=== PATIENT | male | born 1990 | race Caucasian/White ===

== ENCOUNTER 2019-06-09 14:44 | Inpatient (IN) | payer OTHER ==
[~2019-06-09] VITALS: Ht 182.9 cm; Wt 60.6 kg
[2019-06-09 16:18] LABS: HEMATOCRIT 45.2 % (42.0-52.0); HEMOGLOBIN 14.5 g/dl (13.5-17.5); MEAN CORPUSCULAR HEMOGLOBIN 28.3 pg (27.0-33.0); MEAN CORPUSCULAR HGB CONC 32.1 g/dl (32.0-36.5); MEAN CORPUSCULAR VOLUME 88.3 fl (80.0-96.0); PLATELET COUNT, AUTOMATED 207 10^3/uL (150-450); RED BLOOD COUNT 5.12 10^6/uL (4.30-6.10); WHITE BLOOD COUNT 8.7 10^3/uL (4.0-10.0)
[2019-06-09 16:40] LABS: AMPHETAMINES LEVEL URINE NEGATIVE (NEGATIVE); BARBITURATES URINE NEGATIVE (NEGATIVE); BENZODIAZEPINES URINE NEGATIVE (NEGATIVE); CANNABINOIDS URINE NEGATIVE (NEGATIVE); COCAINE METABOLITE URINE NEGATIVE (NEGATIVE); METHADONE URINE NEGATIVE (NEGATIVE); OPIATES URINE NEGATIVE (NEGATIVE); PHENCYCLIDINE URINE NEGATIVE (NEGATIVE)
[2019-06-09 16:56] LABS: ACETAMINOPHEN LEVEL < 2.0 UG/ML (10.0-30.0); ALBUMIN 4.5 GM/DL (3.2-5.2); ALT/SGPT 17 U/L (12-78); BILIRUBIN,DIRECT 0.2 MG/DL (0.0-0.2); BILIRUBIN,TOTAL 0.7 MG/DL (0.2-1.0); BLOOD UREA NITROGEN 8 MG/DL (7-18); CALCIUM LEVEL 9.2 MG/DL (8.5-10.1); CARBON DIOXIDE LEVEL 28 MEQ/L (21-32); CHLORIDE LEVEL 105 MEQ/L (98-107); CREATININE FOR GFR 1.07 MG/DL (0.70-1.30); ETHYL ALCOHOL (ETHANOL) < 0.003 % (0.000-0.010); GLOMERULAR FILTRATION RATE > 60.0 (>60); GLUCOSE, FASTING 95 MG/DL (70-100); POTASSIUM SERUM 4.1 MEQ/L (3.5-5.1); SALICYLATE LEVEL 2.6 MG/DL (5.0-30.0); SODIUM LEVEL 139 MEQ/L (136-145); THYROID STIMULATING HORMONE 0.691 uIU/ML (0.358-3.740); TOTAL PROTEIN 7.9 GM/DL (6.4-8.2)
[2019-06-09] MEDS ORDERED: MAALOX 30 ML SUSP *UDC PO PRN (19:15)
[2019-06-09] MEDS ORDERED: OLANZapine ORAL DISINTEGRATING TAB 5MG PO PRN (19:15)
[2019-06-09] MEDS ORDERED: MOM 30ML SUSPENSION UDC PO PRN (19:15)
[2019-06-09] MEDS ORDERED: ACETAMINOPHEN TAB 650MG DOSE (2X325MG) PO PRN (19:15)
[2019-06-09 21:34] VITALS: BP 126/76
[2019-06-10 07:25] VITALS: BP 106/55
[2019-06-10] MEDS: NICOTINE 21MG/24HR 1 EA TRANSDERMAL TD SCH ×2 (09:00→15:11)
[2019-06-10 12:00] VITALS: BP 128/76
--- NOTE | 2019-06-10 12:33 | MHHPEPDOC ---
General Date Of Admission: Jun 09, 2019 Legal Status: 9.39 Chief Complaint "I'm having thoughts of harming myself". History of Present Illness HISTORY OF THE PRESENT ILLNESS: Patient is a 28 -year-old , AD, male, with no previous psych history who was sent by [facility] after seen as a walk-in for thoughts of SI to the point he turned over his historical knife collection to per ED. Pt endorsed in the ED psychosocial stressors of his currently have epilepsy and trying to transfer to [place] where he and his are from as his currently has to tavel to [place] for all her medical appt's which is stressful, his is also in a custody santos with her ex- regarding th e 's daughter. Pt stated in the ED that he was disappointed with in himself for having thoughts of SI. Psychiatric Review of Systems Depression (2 or more weeks): depressed mood, insomnia/hypersomnia (insomnia), difficulty concentrating, suicidal thoughts Evita (4 or more days of): denies Psychosis: denies PTSD: denies Anxiety: situational anxiety, stressor related anxiety Anxiety/ 6 months or more of: restlessness, keyed up, difficulty concentrating Past Psychiatric History Previous Psychiatric Diagnosis: denies Previous Psychiatric Admissions: denies Suicide Attempts: denies Psychiatric Follow-up: [facility], has been in Anger management in the past at [facility] Psychiatric medications: denies Past Medical History Medical Problems denies Head Injury: No Seizures: No Hospitalizations: No Surgeries: No Family Medical/Psychiatric HX Medical Problems noncontributory Psychiatric Disorders: No Addiction: Yes (father-alcoholism) Suicide Attemps/Completions: No Addiction History denies Social History Childhood: Raised mostly in [place], father was in the , parents when he was 14, 1 older sister and 1 older brother, good childhood Abuse/Trauma: denies Current Living Situation: currently lives with on [place] [address] Education: high school grad Employment: [employer] Social Support: Legal: denies Marital: , 2 step children 12 and 10 Mental Status Examination General Appearance: well groomed, appears stated age, personal clothing Build: average Demeanor: average Eye Contact: average Activity: average Behavior: cooperative Speech: clear, spontaneous, reg/rate,rhythm,volume Mood: euthymic, anxious Mood better Affect: full, appropriate, anxious Thought Content (Delusions): none reported, denies SI, HI, AVH Thought Content (Other): none reported, appropriate Thought Content (Aggressive): none reported Perception (Hallucinations): none reported Perception (Other): none reported Cognition (Impairment of): none reported Cognition(Intelligence Est.): average Oriented: Awake, Alert, Oriented times three Insight: fair Judgment: Fair Psychosis: Denies Diagnoses Adjustment d/o with anxiety and depression A-FIB/CHADSVASC A-FIB History Current/History of A-Fib/PAF?: No Assessment Pt seen and states he's been dealing with a lot of stress working in [employer] in the [employer] that has been insomnia and had feelings of SI yesterday which caused him to come to the ED for help. States he's interested in going to [facility] for therapy in the future to help himself. Denies SI today and states he feels "hopeful" today as he has sought help as states his father became an alcoholic b/c he didn't seek help for anxiety, depression. Denies he feels he needs to start an antidepressant and would like to just continue with therapy outpatient at [facility] as found talking to myself and [facility] staff yesterday very beneficial and states his mood and anxiety are better b/c of that ability to talk about his psychosocial stressors. Denies SI/HI, hallucinations, delusions. Feels safe here. Initial Treatment Plan 1. Patient was admitted on a 9.39 status. 2. Complete history was obtained. 3. With patients permission, family will be contacted and database will be expanded. 4. Patients medication regimen will be reviewed and changed accordingly. 5. Patient will be provided with protected environment. 6. Patient will be treated with individual, group, and milieu therapies. 7. Patient will receive supportive psych-education. 8. Discharge planning will commence immediately. 9. Outpatient follow-up treatment will be strongly recommended. 10. The initial treatment plan will focus initially on: * Depression. * Risk for suicide. 11. monitor for safety ESTIMATED LENGTH OF STAY: 3-5 DAYS. TIME SPENT COUNSELING AND COORDINATING INITIAL CARE: 60 minutes. Vital Signs Vital Signs Date Time Temp Pulse Resp B/P (MAP) Pulse Ox O2 Delivery O2 Flow Rate FiO2 06/10/19 07:25 98.3 63 14 106/55 (72) 06/09/19 21:34 97 Room Air Laboratory Data 24H Labs Laboratory Tests 2 06/09/19 16:01: Nucleated Red Blood Cells % (auto) 0.0, Anion Gap 6L, Glomerular Filtration Rate > 60.0, Calcium Level 9.2, Total Bilirubin 0.7, Direct Bilirubin 0.2, Aspartate Amino Transf (AST/SGOT) 8, Alanine Aminotransferase (ALT/SGPT) 17, Alkaline Phosphatase 77, Total Protein 7.9, Albumin 4.5, Albumin/Globulin Ratio 1.32, Thyroid Stimulating Hormone (TSH) 0.691, Salicylates Level 2.6L, Urine Opiates Screen NEGATIVE, Urine Methadone Screen NEGATIVE, Acetaminophen Level < 2.0L, Urine Barbiturates Screen NEGATIVE, Urine Phencyclidine Screen NEGATIVE, Urine Amphetamines Screen NEGATIVE, Urine Benzodiazepines Screen NEGATIVE, Urine Cocaine Metabolite Screen NEGATIVE, Urine Cannabinoids Screen NEGATIVE, Ethyl Alcohol Level < 0.003 CBC/BMP Laboratory Tests 06/09/19 16:01 Medications No Active Prescriptions or Reported Meds Allergies Coded Allergies: Blueberry (Verified Allergy, Unknown, HIVES, 06/09/19) strawberry (Verified Allergy, Unknown, HIVES, 06/09/19) MARSHA RUBIO DO Jun 10, 2019 12:10 pm
[2019-06-10 16:29] VITALS: BP 139/78
[2019-06-10] MEDS: traZODone 50 MG TAB PO PRN (21:53)
[2019-06-10 23:13] VITALS: BP 138/60
[2019-06-11 06:21] VITALS: BP 123/61
[2019-06-11] MEDS: NICOTINE 21MG/24HR 1 EA TRANSDERMAL TD SCH (08:29)
--- NOTE | 2019-06-11 08:49 | MHIPNPDOC ---
[facility] Progress Note Progress Note DATE OF SERVICE: 06/11/19 HISTORY:Patient is a 28 -year-old , AD, male, with no previous psych history who was sent by [facility] after seen as a walk-in for thoughts of SI to the point he turned over his historical knife collection to per ED. Pt endorsed in the ED psychosocial stressors of his currently have epilepsy and trying to transfer to [place] where he and his are from as his currently has to tavel to [place] for all her medical appt's which is stressful, his is also in a custody santos with her ex- regarding the 's daughter. Pt stated in the ED that he was disappointed with in himself for having thoughts of SI. Pt seen and states he's been dealing with a lot of stress working in [employer] in the [employer] that has been insomnia and had feelings of SI yesterday which caused him to come to the ED for help. States he's interested in going to [facility] for therapy in the future to help himself. Denies SI today and states he feels "hopeful" today as he has sought help as states his father became an alcoholic b/c he didn't seek help for anxiety, depression. Denies he feels he needs to start an antidepressant and would like to just continue with therapy outpatient at [facility] as found talking to myself and [facility] staff yesterday very beneficial and states his mood and anxiety are better b/c of that ability to talk about his psychosocial stressors. Denies SI/HI, hallucinations, delusions. Feels safe here. VITAL SIGNS: See below. NEW TEST RESULTS: See below. CURRENT MEDICATIONS: See below. MENTAL STATUS EXAMINATION: General Appearance: well groomed, appears stated age, personal clothing Build: average Demeanor: average Eye Contact: average Activity: average Behavior: cooperative Speech: clear, spontaneous, reg/rate,rhythm,volume Mood: euthymic, less anxious Mood "alright" Affect: full, appropriate, less anxious Thought Content (Delusions): none reported, denies SI, HI, AVH Thought Content (Other): none reported, appropriate Thought Content (Aggressive): none reported Perception (Hallucinations): none reported Perception (Other): none reported Cognition (Impairment of): none reported Cognition(Intelligence Est.): average Oriented: Awake, Alert, Oriented times three Insight: fair Judgment: Fair Psychosis: Denies DIAGNOSES: Adjustment d/o with anxiety and depression ASSESSMENT:Pt seen and states that his mood is "alright". States he slept well last night with trazodone. He is attending groups and finding them helpful as he enjoyed being able to work with his hands and plans to continue to do that as a coping mechanism when he leaves. States his turned over most of his k nife collection that he started with his grandfather yesterday and plans to sign for the rest to be turned into his Benjamin today. He denies SI/HI, hallucinations, delusions. Pt feels safe here. MANAGEMENT PLAN: d/c tomorrow. medications: trazodone 50mg qhs prn insomnia TIME SPENT: 30 minutes. Vital Signs Vital Signs Date Time Temp Pulse Resp B/P (MAP) Pulse Ox O2 Delivery O2 Flow Rate FiO2 06/11/19 06:21 98.0 92 16 123/61 (81) 06/09/19 21:34 97 Room Air Current Medications Current Medications Medications (Trade) Dose Ordered Sig/Jennifer Route PRN Reason Start Time Stop Time Status Last Admin Dose Admin Acetaminophen (Tylenol Tab) 650 mg Q6HP PRN PO HEADACHE or DISCOMFORT 06/09/19 19:15 Al Hydrox/Mg Hydrox/Simethicone (Mylanta) 30 ml Q4HP PRN PO HEARTBURN/INDIGESTION 06/09/19 19:15 Home Med (Med Rec Complete!) ASDIRECTED XX 06/09/19 19:30 06/09/19 19:26 DC Magnesium Hydroxide (Milk Of Magnesia) 30 ml DAILYPRN PRN PO CONSTIPATION 06/09/19 19:15 Nicotine (Nicoderm Cq 21mg) 1 patch DAILY TD 06/10/19 09:00 06/11/19 08:29 Olanzapine (ZyPREXA ZYDIS) 5 mg Q4HP PRN PO AGITATION 06/09/19 19:15 Trazodone HCl (Desyrel) 50 mg QHSP PRN PO INSOMNIA 06/09/19 19:15 06/10/19 21:53 Allergies Coded Allergies: Blueberry (Verified Allergy, Unknown, HIVES, 06/09/19) strawberry (Verified Allergy, Unknown, HIVES, 06/09/19) MARSHA RUBIO DO Jun 11, 2019 8:49 am
[2019-06-11 18:39] VITALS: BP 134/78
[2019-06-11] MEDS: traZODone 50 MG TAB PO PRN (21:53)
--- NOTE | 2019-06-12 05:24 | HPEPDOC ---
[facility] Medical History & Physical Date of Admission Jun 12, 2019 Date of Service: Jun 12, 2019 Attending Physician: MARSHA RUBIO DO History and Physical TIME OF SERVICE: 5:40 AM REASON FOR CONSULT: Medical evaluation HISTORY OF PRESENT ILLNESS: This is a 28-year-old male without medical history who was admitted to [facility] for management of depression with suicidal ideation. Really he denies having any acute complaints of left part of the night. He anticipates being discharged later on today. REVIEW OF SYSTEMS: 12 point review of systems negative except as listed in HPI PAST MEDICAL/ SURGICAL HISTORY: None SOCIAL HISTORY: He is in the He smokes ALLERGIES: Please see below. HOME MEDICATIONS: Please see below. PHYSICAL EXAMINATION: VITAL SIGNS: Please see below. GEN: well-nourished / well developed/ NAD HEENT: NCAT MSK/EXTREMITIES: Gait normal NEURO: CN 2-12 are grossly intact / speech is not dysarthric PSYCH: alert and oriented to person place and time/ able to understand and follow all commands LABORATORY DATA: 06/09/19 WBC 8.7, hemoglobin 14. 5, platelets 207, sodium 139, potassium 4.1, chloride 105, carbon dioxide 28, BUN 8, creatinine 1.07, GFR greater than 60, glucose 95, TSH 0.691 Drug screen was unremarkable ASSESSMENT: Mr. Becerril is a 28 yr old M admitted for management of depression with suicidal ideation; consulted for medical evaluation. PLAN: 1. Depression with suicidal ideation-Plan: Per primary team 2. [id number]-Oruf: Follow up with PCP 3. Tobacco abuse-Plan: Smoking cessation education. He has a nicotine patch Thank you for consulting us. We will sign off unless any acute medical issues arise. Vital Signs Vital Signs Date Time Temp Pulse Resp B/P (MAP) Pulse Ox O2 Delivery O2 Flow Rate FiO2 06/11/19 18:39 99.1 95 18 134/78 (96) 06/09/19 21:34 97 Room Air Home Medications No Active Prescriptions or Reported Meds Allergies Coded Allergies: Blueberry (Verified Allergy, Unknown, HIVES, 06/09/19) strawberry (Verified Allergy, Unknown, HIVES, 06/09/19) A-FIB/CHADSVASC A-FIB History Current/History of A-Fib/PAF?: No Current PO Anticoag Therapy: No SARAN CLEMONS MD Jun 12, 2019 05:24
[2019-06-12 06:06] VITALS: BP 114/68
[2019-06-12] MEDS: NICOTINE 21MG/24HR 1 EA TRANSDERMAL TD SCH (08:34)
--- NOTE | 2019-06-12 08:50 | MHDSPDOC ---
[facility] Discharge Summary Discharge Summary DATE OF ADMISSION: Jun 09, 2019 at 7:09 pm DATE OF DISCHARGE: Jun 15, 2019 DISCHARGE DIAGNOSES: Adjustment d/o with anxiety and depression REASON FOR ADMISSION: Patient is a 28 -year-old , AD, male, with no previous psych history who was sent by [facility] after seen as a walk-in for thoughts of SI to the point he turned over his historical knife collection to [facility] ED. Pt endorsed in the ED psychosocial stressors of his currently have epilepsy and trying to transfer to [place] where he and his are from as his currently has to tavel to [place] for all her medical appt's which is stressful, his is also in a custody santos with her ex- regarding the 's daughter. Pt stated in the ED that he was disappointed with in himself for having thoughts of SI. Pt seen and states he's been dealing with a lot of stress working in [employer] in the [place] that has been insomnia and had feelings of SI yesterday which caused him to come to the ED for help. States he's interested in going to [facility] for therapy in the future to help himself. Denies SI today and states he feels "hopeful" today as he has sought help as states his father became an alcoholic b/c he didn't seek help for anxiety, depression. Denies he feels he needs to start an antidepressant and would like to just continue with therapy outpatient at [facility] as found talking to myself and [facility] staff yesterday very beneficial and states his mood and anxiety are better b/c of that ability to talk about his psychosocial stressors. Denies SI/HI, hallucinations, delusions. Feels safe here. CONSULTANTS INVOLVED: none TREATMENT AND PROGRESS ON THE UNIT : Pt was admitted to [facility], seen for psychiatric assessment and not started on an antidepressant medication as he declined he needed on and wanted to try outpatient therapy as treatment first for his mood and anxiety as he found talking very beneficial. He was provided trazodone 50mg qhs prn insomnia that he found beneficial for insomnia, tolerated well, and wanted a prescription for upon d/c. He attended groups daily during his stay. His symptoms improved with treatment. On day of discharge he denied depression, anxiety, insomnia, SI/HI, hallucinations, delusions. He was discharged home after Benjamin meeting with follow-up at [facility]. He felt safe for discharge. DISCHARGE ASSESSMENT: Pt seen and states that his mood is "good" and that he's looking forward to going home with his Benjamin today. States he slept well last night with trazodone and is tolerating it well. He is attending groups and finding them helpful as he enjoyed being able to work with his hands and plans to continue to do that as a coping mechanism when he leaves. States his historical knife collection has been turned over to his Benjamin by his . He denies depression, anxiety, insomnia, SI/HI, hallucinations, delusions. Pt feels safe to d/c home with his Benjamin today. MENTAL STATUS EXAMINATION ON DISCHARGE: General Appearance: well groomed, appears stated age, personal clothing Build: average Demeanor: average Eye Contact: average Activity: average Behavior: cooperative Speech: clear, spontaneous, reg/rate,rhythm,volume Mood: euthymic, full range Mood "good" Affect: full, appropriate, congruent Thought Content (Delusions): none reported, denies SI, HI, AVH Thought Content (Other): none reported, appropriate Thought Content (Aggressive): none reported Perception (Hallucinations): none reported Perception (Other): none reported Cognition (Impairment of): none reported Cognition(Intelligence Est.): average Oriented: Awake, Alert, Oriented times three Insight: good Judgment: good Psychosis: Denies MEDICATIONS ON DISCHARGE: trazodone 50mg qhs prn insomnia PLAN/FOLLOWUP ARRANGEMENTS: D/c home with Benjamin with follow-up at [facility]. The amount of time spent in the coordination of care for this patient was approximately 30 minutes. Vital Signs/I&Os Vital Signs Date Time Temp Pulse Resp B/P (MAP) Pulse Ox O2 Delivery O2 Flow Rate FiO2 06/12/19 06:06 99.1 77 16 114/68 (83) 06/09/19 21:34 97 Room Air Medications No Active Prescriptions or Reported Meds Allergies Coded Allergies: Blueberry (Verified Allergy, Unknown, HIVES, 06/09/19) strawberry (Verified Allergy, Unknown, HIVES, 06/09/19) MARSHA RUBIO DO Jun 12, 2019 8:50 am
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
[2019-06-12 16:26] VITALS: BP 136/80
[2019-06-12] MEDS: traZODone 50 MG TAB PO PRN (22:17)
[2019-06-13 05:58] VITALS: BP 115/68
[2019-06-13] MEDS: NICOTINE 21MG/24HR 1 EA TRANSDERMAL TD SCH (08:26)
[2019-06-13 16:17] VITALS: BP 124/88
[2019-06-13] MEDS: traZODone 50 MG TAB PO PRN (22:20)
[2019-06-14 06:31] VITALS: BP 131/67
[2019-06-14] MEDS: NICOTINE 21MG/24HR 1 EA TRANSDERMAL TD SCH (08:34)
[2019-06-14 16:06] VITALS: BP 114/60
[2019-06-14] MEDS: traZODone 50 MG TAB PO PRN (21:53)
[2019-06-15 06:48] VITALS: BP 129/80
[2019-06-15] MEDS: NICOTINE 21MG/24HR 1 EA TRANSDERMAL TD SCH (08:18)
[2019-06-15] MEDS ORDERED: TRAZ-252 PO (08:26)
[2019-06-15] MEDS ORDERED: NICO21PAT TD (09:52)
== END 2019-06-15 10:35 | disposition home or self-care (01) | DRG 882 ==
LOC: M ED 14:44 → M ED INP 19:09 → M PSY 21:10
PROVIDERS: ADMIT Psychiatry & Neurology Psychiatry; ATTEND Psychiatry & Neurology Psychiatry
DX: F43.23 Adjustment disorder with mixed anxiety and depressed mood (principal); R45.851 Suicidal ideations; Z91.018 Allergy to other foods; F17.200 Nicotine dependence, unspecified, uncomplicated